=== PATIENT | male | born 1965 | race Caucasian/White ===

== ENCOUNTER 2018-01-30 07:50 | Day surgery (SDC) | payer BC ==
[2018-01-28 14:22] VITALS: BMI 36.8
[2018-01-30] MEDS ORDERED: MIDAZOLAM HCL 2 MG/2 ML SINGLE DOSE VIAL ONE (08:46)
[2018-01-30] MEDS ORDERED: ROPIVACAINE HCL 0.5% 30ML VIAL ONE (08:47)
[2018-01-30] MEDS ORDERED: ACETAMINOPHEN INJECTION 100 ML IVPB ONE (10:02)
[2018-01-30] MEDS ORDERED: PROPOFOL 20 ML ONE ×2 (10:12→10:31)
[2018-01-30] MEDS ORDERED: LIDOCAINE HCL/PF 2% SDV 5ML VIAL ONE (10:15)
[2018-01-30] MEDS ORDERED: SUCCINYLCHOLINE CHLORIDE 200 MG/10 ML VIAL ONE (10:15)
[2018-01-30] MEDS ORDERED: KETOROLAC TROMETHAMINE 30 MG/1 ML VIAL ONE (10:25)
[2018-01-30] MEDS ORDERED: DEXAMETHASONE SOD PHOSPHATE 4 MG/1 ML VIAL ONE (10:25)
[2018-01-30] MEDS ORDERED: ONDANSETRON 4 MG/2 ML VIAL ONE (10:25)
[2018-01-30] MEDS ORDERED: ROCURONIUM BROMIDE 50 MG/5 ML VIAL ONE (10:26)
[2018-01-30] MEDS ORDERED: ePHEDrine SULFATE 50 MG/1 ML AMPULE ONE (10:44)
[2018-01-30] MEDS ORDERED: DESFLURANE GAS 240 ML BOTTLE IH ONE (11:13)
[2018-01-30] MEDS ORDERED: BUPIVACAINE HCL/PF 2.5 MG/ML - 30 ML VIAL IJ ONE (11:32)
[2018-01-30] MEDS ORDERED: BUPIVACAINE HCL/PF 0.25% (2.5MG/ML) 10 ML VIAL IJ ONE (11:36)
[2018-01-30] MEDS ORDERED: ONDANSETRON 4 MG/2 ML VIAL IVPUSH PRN (11:37)
[2018-01-30] MEDS ORDERED: oxyCODONE HCL 5 MG TABLET PO PRN (11:37)
[2018-01-30] MEDS ORDERED: LACTATED RINGERS SOLUTION 1,000 ML IV SCH (11:45)
[2018-01-30 13:29] VITALS: TEMP 97.6
[2018-01-30 14:48] VITALS: BP 124/92; PULSE 92
--- NOTE | 2018-02-01 20:47 | OP ---
DATE OF OPERATION: 01/30/2018 LOCATION: [facility]. SURGEON: Jak Goldberg MD GEOPHYSICAL E LOGGER: JESSE Brenner PREOPERATIVE DIAGNOSES: 1. Left knee quadriceps tendon rupture. 2. Left knee medial and lateral meniscal tear. 3. Left knee cartilage injury. 4. Left knee synovitis. POSTOPERATIVE DIAGNOSES: 1. Left knee quadriceps tendon rupture. 2. Left knee medial and lateral meniscal tear. 3. Left knee cartilage injury. 4. Left knee synovitis. PROCEDURE: 1. Left knee open quadriceps tendon repair, CPT code 72266. 2. Left knee arthroscopy with partial meniscectomy, medial and lateral meniscus. 3. Left knee arthroscopy with chondroplasty and abrasion-plasty. 4. Left knee arthroscopy with synovectomy. FINDINGS: 1. Full-thickness quadriceps tendon rupture with avulsion off the superior pole of patella. 2. Medial meniscus body and posterior horn tear. 3. Lateral meniscus posterior horn tear. 4. Synovitis, patellofemoral medial and lateral notch area. 5. Anterior grade 1 to 2 cartilage injury, medial femoral condyle and tibial plateau. 6. Central grade 4 changes, patella and superior portion of patella and centrally with grade 2 to 3 changes to patella and femoral trochlea. PROCEDURE: Informed consent was obtained. The patient came to the operating room, where the lower extremity was prepped and draped in a sterile fashion. A tourniquet was placed on the upper thigh, but not inflated. Using standard arthroscopic technique, a lateral incision and portal was made to allow for introduction of the camera into the suprapatellar bursa. This was then taken to the medial joint line, where under direct visualization, a medial incision and portal was made. Excessive synovium noted in the medial, lateral and patellofemoral and notch area was removed by an upbiter, shaver and Bovie cautery. This was found to bring in inflammatory tissue into the joint surface, a source of pain and dysfunction. Probing of the medial and lateral meniscus found tears, as described in the findings. These were removed with the upbiter and shaver and taken back to a stable rim. Grade 2 to 3 degenerative changes were treated with a chondroplasty, removing all flaking surfaces with low-setting Bovie along the periphery to prevent further flaking. Grade 4 changes, as noted, were treated with an abrasoplasty, creating a bleeding surface at the bone/cartilage interface. Aggressive debridement with shaver/emmanuel created bleeding surface. Micro fracture also done when indicated in findings All areas of the knee were once again reexamined. The knee was then drained and a single suture was placed in all portals. A sterile dressing was placed and the patient was transferred to the recovery room without complication. ADDENDUM: After the knee arthroscopy, an incision was made starting from the central portion of the patella to 8 cm proximal to the superior pole of patella. This was taken down to the paratenon and the quadriceps tendon rupture was identified. All loose and necrotic area was debrided on the undersurface through arthroscopy and on the superior surface with open debridement. Scar tissue was removed. The superior pole of patella was debrided with a rongeur, creating bleeding surface. Using a number 5 Ethibond, two number 5 Ethibond were used, with Krackow type interlocking stitches. This created 4 ends with interlocking to the quadriceps tendon. Three bone tunnels were made through the pole of the patella and the 4 sutures were tied over the bone tunnels to secure the quadriceps tendon to the bleeding bone bed. This was then oversewn with number 2 FiberWire in [id number] interrupted sutures. Layered closure of 0 Vicryl, 2-0 Vicryl, and qasim, with 4 sterile dressings and splint was placed, and patient was transferred to the recovery room without complication. JAK GOLDBERG M.D. [id number]
--- NOTE | 2018-02-03 15:02 | PATH ---
Surgical Pathology Report Patient Name: DEBBIE MCDANIEL Med. Rec. #: [id number] /Age/Gender: 1965 (Age: 53) / M Account: [id number] Location: [facility] AMBUL[facility]ORY Taken: 01/30/2018 Received: 01/30/2018 Reported: 02/03/2018 Physicians: Jak Graham M.D. Specimen(s) Received A: LEFT KNEE SHAVINGS B: LEFT QUAD TENDON TEAR Clinical History Left knee internal derangement and quadriceps tendon tear Final Diagnosis A. KNEE, LEFT, ARTHROSCOPIC SHAVINGS: FIBROSYNOVIAL TISSUE SHOWING CHRONIC INFLAMMATION AND REACTIVE CHANGES. CARTILAGE AND FIBROADIPOSE TISSUE WITH NO SIGNIFICANT PATHOLOGIC FINDINGS. B. QUAD TENDON TEAR, LEFT, REPAIR: FIBROCOLLAGENOUS TISSUE SHOWING FIBRINO-HEMORRHAGIC EXUDATE WITH GRANULATION TISSUE FORMATION. PORTION OF BONE WITH REPARATIVE CHANGES. Electronically Signed Ally Leone M.D. Gross Description A. Received in formalin, labeled "left knee shavings," is a 3.5 x 3.0 x 0.4 cm. aggregate of marrufo-yellow soft tissue fragments. A indirect sales representative portion is submitted in one cassette. B. Received in formalin labeled "left quad tendon tear," is a 2.0 x 1.5 x 1.2 cm marrufo, irregular portion of bone with attached soft tissue. Traffic Personnel Supervisor sections are submitted in one cassette, following decalcification. 02/02/2018 [facility]02/02/2018
== END 2018-01-30 14:20 | disposition home or self-care (01) ==
LOC: FASU 07:50
PROVIDERS: ATTEND Orthopaedic Surgery
PROC: 0SBD4ZZ Excision of Left Knee Joint, Percutaneous Endoscopic Approach (ICD-10-PCS; 2018-01-30)
PROC: 0SBD4ZZ Excision of Left Knee Joint, Percutaneous Endoscopic Approach (ICD-10-PCS; 2018-01-30)
PROC: 0LQM0ZZ Repair Left Upper Leg Tendon, Open Approach (ICD-10-PCS; principal; 2018-01-30 10:42)
PROC: 0SBD4ZZ Excision of Left Knee Joint, Percutaneous Endoscopic Approach (ICD-10-PCS; 2018-01-30 10:42)
DX: S76.112A Strain of left quadriceps muscle, fascia and tendon, initial encounter (principal); S83.242A Other tear of medial meniscus, current injury, left knee, initial encounter; S83.282A Other tear of lateral meniscus, current injury, left knee, initial encounter; S83.8X2A Sprain of other specified parts of left knee, initial encounter; M65.862 Other synovitis and tenosynovitis, left lower leg; X58.XXXA Exposure to other specified factors, initial encounter; Y93.89 Activity, other specified; Y92.89 Other specified places as the place of occurrence of the external cause
CPT/HCPCS: 82962; 88304-TC; 94760